=== PATIENT | female | born 1955 | race African-American/Black ===

== ENCOUNTER 2020-01-31 08:08 | Day surgery (SDC) | payer OTHER ==
[2020-01-29 11:11] VITALS: BMI 29.5
[2020-01-31] MEDS ORDERED: PROPOFOL 20 ML ONE ×2 (08:19)
[2020-01-31 09:16] VITALS: TEMP 98.1
[2020-01-31 09:34] VITALS: BP 114/65; PULSE 67
== END 2020-01-31 09:40 | disposition home or self-care (01) ==
LOC: FASU-ENDO 08:08
PROVIDERS: ATTEND Internal Medicine Gastroenterology
PROC: 0DJD8ZZ Inspection of Lower Intestinal Tract, Via Natural or Artificial Opening Endoscopic (ICD-10-PCS; principal; 2020-01-31 08:45)
DX: Z12.11 Encounter for screening for malignant neoplasm of colon (principal); K59.00 Constipation, unspecified